=== PATIENT | male | born 1970 | race Caucasian/White ===

== ENCOUNTER → 2017-10-20 | Outpatient (CLI) | payer OTHER ==
[~2017-10-20] MED LIST: IOPAMIDOL (ISOVUE 370) 100 ML BTL IV ONE
== END ==
LOC: FIMAGING 13:48
PROVIDERS: ATTEND Internal Medicine
DX: R07.81 Pleurodynia (principal); R10.9 Unspecified abdominal pain; M51.34 Other intervertebral disc degeneration, thoracic region; R93.3 Abnormal findings on diagnostic imaging of other parts of digestive tract
CPT/HCPCS: Q9967

== ENCOUNTER 2018-06-17 12:55 | Emergency (ER) | payer OTHER ==
[2018-06-17] MEDS ORDERED: TDAP ADULT 0.5 ML INJ (BOOSTRIX) IM ONE (13:14)
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
[2018-06-17] MEDS ORDERED: HYDROCODONE/APAP 5/325 TAB PO ONE (14:16)
[2018-06-17 14:17] VITALS: BP 131/82
== END 2018-06-17 14:16 | disposition home or self-care (01) ==
DX: S00.91XA Abrasion of unspecified part of head, initial encounter (principal); S50.11XA Contusion of right forearm, initial encounter; S70.211A Abrasion, right hip, initial encounter; S80.211A Abrasion, right knee, initial encounter; S50.311A Abrasion of right elbow, initial encounter; V18.0XXA Pedal cycle driver injured in noncollision transport accident in nontraffic accident, initial encounter; Y92.9 Unspecified place or not applicable; Y93.9 Activity, unspecified; Y99.9 Unspecified external cause status; Z23 Encounter for immunization